=== PATIENT | female | born 1990 | race Caucasian/White ===

== ENCOUNTER 2018-03-05 07:45 | Day surgery (SDC) | payer BC ==
[~2018-03-05 07:45] MED LIST: ATROPINE 1 MG/10 ML SYRINGE IV; CEFAZOLIN 1 GM INJ; DIPHENHYDRAMINE 50 MG INJ IV; EPHEDrine SULFATE 50 MG/5 ML SYG IV; FENTAnyl 50 MCG/ML VIAL IV; HYDROmorphONE (0.2 MG/ML) 10ML SYG IV; LABETALOL HCL 20MG INJ IV; MEPERIDINE 25 MG INJ IV; MIDAZOLAM 1 MG/ML 2 ML INJ IV; ONDANSETRON 4 MG INJ IV; OXYCODONE/ACETAMINOPHEN (5/325) TAB PO; hydrALAzine 20 MG INJ IV; morphine (1 MG/ML) 10ML SYRINGE IV
[2018-03-05 09:16] LABS: ADD MAN DIFF? NO
[2018-03-05 09:19] LABS: WHITE BLOOD COUNT 7.2 10^3/ul (4.8-10.8)
[2018-03-05 09:19] LABS: BASOPHILS % 0.4 % (0.0-2.0); EOSINOPHILS # 0.1 10^3/ul (0.0-0.5); EOSINOPHILS % 0.7 % (0.0-7.0); HEMATOCRIT 42.3 % (37.0-47.0); HEMOGLOBIN 14.2 g/dl (12.0-16.0); LYMPHOCYTES % 28.1 % (15.0-51.0); MEAN CORPUSCULAR HEMOGLOBIN 28.7 pg (29.0-33.0); MEAN CORPUSCULAR HGB CONC 33.6 g/dl (32.0-37.0); MEAN CORPUSCULAR VOLUME 85.6 fl (82.0-101.0); MEAN PLATELET VOLUME 12.2 fl (7.4-10.4); MONOCYTE # 0.5 10^3/ul (0.3-0.9); MONOCYTES % 6.4 % (0.0-11.0); NEUTROPHIL # 4.6 10^3/ul (1.6-7.5); NEUTROPHILS % 64.1 % (39.0-77.0); PLATELET COUNT 282 10^3/UL (140-415); RED BLOOD COUNT 4.94 10^6/ul (4.20-5.40)
[2018-03-05 09:25] LABS: INR 1.01; PROTIME 13.4 Sec (11.9-14.9)
[2018-03-05 09:26] LABS: PARTIAL THROMBOPLASTIN TIME 28.8 Sec (25.0-35.0)
[2018-03-05 09:29] LABS: ALANINE AMINOTRANSFERASE 28 IU/L (13-69); ALBUMIN 4.3 g/dl (3.3-4.9); ALBUMIN/GLOBULIN RATIO 1.26; ALKALINE PHOSPHATASE 82 IU/L (42-121); ANION GAP 17 (8-16); ASPARTATE AMINO TRANSFERASE 21 IU/L (15-46); BILIRUBIN,INDIRECT 0.5 mg/dl (0-1.1); BILIRUBIN,TOTAL 0.5 mg/dl (0.2-1.3); CARBON DIOXIDE 30 mmol/L (21-31); CHLORIDE 105 mmol/L (97-110); GLUCOSE 100 mg/dl (70-220); TOTAL PROTEIN 7.7 g/dl (6.1-8.1)
[2018-03-05 09:39] LABS: BLOOD UREA NITROGEN 13 mg/dl (7-20); CALCIUM 9.6 mg/dl (8.4-10.2); CREATININE 0.84 mg/dl (0.44-1.00); POTASSIUM 4.6 mmol/L (3.5-5.1); SODIUM 147 mmol/L (135-144)
[2018-03-05] MEDS ORDERED: GLYCOPYRROLATE 0.4 MG INJ (10:16)
[2018-03-05] MEDS ORDERED: LIDOCAINE 2% (SDV) 5 ML INJ (10:16)
[2018-03-05] MEDS ORDERED: MIDAZOLAM 1 MG/ML 2 ML INJ (10:16)
[2018-03-05] MEDS ORDERED: ROCURONIUM 50 MG INJ (10:16)
[2018-03-05] MEDS ORDERED: NEOSTIGMINE 3 MG/3 ML SYRINGE (10:16)
[2018-03-05] MEDS ORDERED: FENTAnyl 50 MCG/ML VIAL (10:16)
[2018-03-05] MEDS ORDERED: PROPOFOL 20 ML (10:16)
[2018-03-05] MEDS ORDERED: DEXAMETHASONE 4 MG/ML 1 ML INJ (10:18)
[2018-03-05] MEDS ORDERED: LACTATED RINGER'S 1,000 ML IV (10:18)
[2018-03-05] MEDS ORDERED: KETOROLAC 30 MG INJ IV (10:30)
[2018-03-05] MEDS ORDERED: ONDANSETRON 4 MG INJ IV (10:30)
[2018-03-05] MEDS: LIDOCAINE 1%/EPI 30 ML INJ (10:45)
[2018-03-05] MEDS: STRONG IODINE 14 ML SOLUTION TOP (10:45)
[2018-03-05] MEDS: FERRIC SUBSULFATE 8 GM VIAL TOP (10:47)
[2018-03-05] MEDS ORDERED: ONDANSETRON 4 MG INJ (11:08)
[2018-03-05] MEDS ORDERED: KETOROLAC 30 MG INJ (11:20)
[2018-03-05] MEDS: KETOROLAC 30 MG INJ IV (11:34)
[2018-03-05] MEDS: FENTAnyl 50 MCG/ML VIAL IV (11:38)
[2018-03-05] MEDS ORDERED: FENTAnyl 50 MCG/ML VIAL IV ×2 (12:00)
== END 2018-03-05 12:36 | disposition home or self-care (01) ==
LOC: SDS 07:45
DX: N72 Inflammatory disease of cervix uteri (principal)
CPT/HCPCS: 58120; 80053; 85025; 85610; 85730